=== PATIENT | female | born 1980 | race Asian ===

== ENCOUNTER → 2016-08-29 | Outpatient (CLI) | payer OTHER ==
[2016-08-31 09:30] LABS: QUANTIF TB AG-NIL <0.00 IU/ML; QUANTIFERON NIL 0.11 IU/ML
== END | disposition home or self-care (01) ==
LOC: C.LABSPEC 12:45
PROVIDERS: ATTEND Family Medicine
DX: Z11.3 Encounter for screening for infections with a predominantly sexual mode of transmission (principal); Z11.1 Encounter for screening for respiratory tuberculosis

== ENCOUNTER → 2017-05-25 | Outpatient (CLI) | payer OTHER | END | disposition home or self-care (01) | LOC: C.LABSPEC 15:37 | PROVIDERS: ATTEND Physician Assistant | DX: N92.6 Irregular menstruation, unspecified (principal) ==